=== PATIENT | female | born 1990 | race Caucasian/White ===

== ENCOUNTER 2017-06-21 22:37 | Emergency (ER) | payer SELFPAY ==
[~2017-06-21] VITALS: Ht 167.6 cm; Wt 90.5 kg
[~2017-06-21 22:37] MED LIST: AMOXICILLIN 50500 MG PO; BACTROBAN 22GM22 GM NAS; BCP; CLINDAMYCIN300 MG PO; FLAGYL ER750 MG PO; NO HOME MEDICATIONS; NORCO 325 MG-51 TAB PO; PEN-VEE K500 MG PO; PERCOCET 325 MG1 TA2 PO; PREDNISONE20 MG PO; PRENATAL1 TA1 PO; RECLIPSEN 0.151 TAB PO; birth control pills
[2017-06-21 22:43] VITALS: BP 119/86; TEMP 99.1
[2017-06-21] MEDS ORDERED: BACTRIM DS 8001 TAB PO (23:21)
[2017-06-21] MEDS ORDERED: DIFLUCAN150 MG PO (23:48)
[2017-06-21 23:52] VITALS: PULSE 89
[2017-06-21] MEDS ORDERED: MOBIC 7.5MG7.5 MG PO (23:52)
== END 2017-06-21 23:54 | disposition home or self-care (01) ==
LOC: COL.ER 22:37
DX: L03.012 Cellulitis of left finger (principal)